=== PATIENT | female | born 1980 | race Caucasian/White ===

== ENCOUNTER 2022-03-12 17:27 | Emergency (ER) | payer OTHER, MEDICAID, SELFPAY ==
[2022-03-12 18:16] VITALS: BP 115/67; PULSE 89; RESP 20; TEMP 37.1; O2SAT 99
--- NOTE | 2022-03-12 20:15 | ED.URI ---
HPI - URI/Sore Throat General Chief Complaint: Upper Respiratory Symptoms Stated Complaint: sore throat Time Seen by Provider: 03/12/22 18:04 Source: patient Mode of arrival: Ambulatory History of Present Illness HPI Narrative: 41-year-old female nonsmoker with noncontributory medical history presents with her son, both of which have chief complaints of fever sore throat and difficulty swallowing. Both her son and her daughter have documented strep pharyngitis. She is not dizzy nor weak or lightheaded. She denies any chest pain or shortness of breath. She is had no nausea, vomiting or diarrhea. Review of Systems Review of Systems Narrative: GENERAL: See HPI HEENT: See HPI RESPIRATORY: Denies dyspnea, cough, wheezing, hemoptysis, sputum. CARDIOVASCULAR: Denies chest pain, palpitations, orthopnea, edema, GASTROINTESTINAL: Denies nausea, vomiting, abdominal pain, diarrhea, constipation, melena. : Denies dysuria, frequency, incontinence, hematuria, urinary retention. MUSCULOSKELETAL: denies weakness, joint pain, or bony pain SKIN: Denies rash, skin lesions, or other NEUROLOGIC: Denies weakness, headache, numbness, change in speech, confusion, seizures, incoordination. PSYCHIATRIC: No concerning psychosocial issues. 12 point review of systems is negative except for those stated above Exam Narrative Exam Narrative: GENERAL: [41] year old patient appears stated age. Well-developed patient, in mild distress. HEAD: Atraumatic. Normocephalic. EYES: Pupils equal round and reactive. Extraocular motions intact. No scleral icterus. No injection or drainage. ENT: Nose without bleeding, purulent drainage. No obvious tonsillar swelling though there is postpharyngeal erythema, no mass or uvular pointing NECK: Trachea midline. Tender anterior nodes CARDIOVASCULAR: Regular rate and rhythm without murmurs, gallops, or rubs. RESPIRATORY: Clear to auscultation. Breath sounds equal bilaterally. No wheezes, rales, or rhonchi. GASTROINTESTINAL: Abdomen soft, non-tender, nondistended. EXTREMITIES: No edema or joint tenderness. BACK: Nontender without deformity or crepitance. No flank tenderness. NEURO: AOx3. SKIN: No rash or erythema of visible areas Initial Vital Signs Initial Vital Signs: Vital Signs Temperature 98.7 F 03/12/22 18:16 Pulse Rate 89 03/12/22 18:16 Respiratory Rate 20 03/12/22 18:16 Blood Pressure 115/67 03/12/22 18:16 Pulse Oximetry 99 03/12/22 18:16 Oxygen Delivery Method 03/12/22 18:16 Course Orders Ordered: ED Orders 03/12/22 20:25 COVID19 -Nasal RAPID/Pre-Proc Stat Discontinued Medications Penicillin G Benzathine (Penicillin G Benzathine 1,200,000 Unit/2 Ml Syringe) 1,200,000 unit IM NOW ONE Stop: 03/12/22 21:25 Last Admin: 03/12/22 21:30 Dose: 1,200,000 unit Documented By: AP Vital Signs Vital signs: Vital Signs - 8 hr 03/12/22 21:41 Pulse Rate 80 Respiratory Rate 18 Blood Pressure 129/80 Pulse Oximetry 98 Oxygen Delivery Method Room Air MDM - URI/Sore Throat Lab Data Labs: Lab Results 03/12/22 Range/Units 20:25 SARS-CoV-2 (PCR) Negative (Negative) Point of Care Testing Rapid Strep A Negative MDM Narrative Medical decision making narrative: Patient's rapid strep was negative but given her rather classic presentation and both children with documented strep we discussed pros and cons of treatment and sure the opinion that she is appropriate for treatment here. Questions answered to her apparent satisfaction Discharge Plan Departure Patient Disposition: Home Clinical Impression: Pharyngitis Instructions: DI for Strep Throat Activity Restrictions/Additional Instructions: *You have been diagnosed with [pharyngitis with negative COVID and negative rapid strep. Your culture is pending but given multiple family members with strep we have elected to treat with antibiotics tonight] *What to do: *Please continue to take your regular medications as directed. *Please follow up with your primary care provider in 2-3 days, call for an appointment. Let them know you were seen in the Emergency Department and that we ask that you be seen in follow up. We will electronically transmit a record of today's note if your PCP is in our system *Return to Emergency Department if you should have any new, worsening or concerning symptoms, such as [fever greater than 101 F, shaking chills, worsening pain, persistent vomiting or other bothersome symptoms] Visit Report Forms: Patient Portal/API
[2022-03-12 21:09] LABS: COVID19 -Nasal RAPID Negative (Negative)
[2022-03-12] MEDS: PENICILLIN G BENZATHINE 1,200,000 UNIT/2 ML SYRINGE 1200000 UNIT IM (21:30)
[2022-03-12 21:41] VITALS: BP 129/80; PULSE 80; RESP 18; O2SAT 98
== END 2022-03-12 21:53 | disposition home or self-care (01) ==
PROVIDERS: Emergency Provider Emergency Medicine
DX: J02.9 Acute pharyngitis, unspecified (principal); Z20.822 Contact with and (suspected) exposure to COVID-19
CPT/HCPCS: 87070; 87635; 87880; 96372; 99283; C9803; J0561

== ENCOUNTER 2022-05-09 15:58 | Emergency (ER) | payer OTHER, MEDICAID, SELFPAY ==
[2022-05-09 16:13] VITALS: BP 110/67; PULSE 77; RESP 20; TEMP 37.7; O2SAT 96; BMI 28.5
[2022-05-09] MEDS: IBUPROFEN 400 MG TABLET 800 MG PO (16:24)
[2022-05-09 17:17] LABS: Influenza A - CEPHEID Flu A POSITIVE (NEGATIVE); Influenza B - CEPHEID Flu B NEGATIVE (NEGATIVE); Respiratory Syncytial Virus Negative (Negative)
[2022-05-09 17:24] LABS: COVID-19 CEPHEID 4-PLEX PCR POSITIVE (Negative)
[2022-05-09 19:24] VITALS: O2SAT 99
[2022-05-09 19:25] VITALS: BP 104/59; PULSE 92; O2SAT 98
[2022-05-09 19:30] VITALS: PULSE 92; O2SAT 96
--- NOTE | 2022-05-09 19:44 | ED.URI ---
HPI - URI/Sore Throat General Chief Complaint: Upper Respiratory Symptoms Stated Complaint: abd pain, back pain, chest pain, fever x 2 days Time Seen by Provider: 05/09/22 19:37 Source: patient Mode of arrival: Ambulatory History of Present Illness HPI Narrative: Patient is a 41-year-old female with history of hypothyroid, presents with abdominal pain body aches decreased appetite presenting today. She is had some shortness of breath cough and generally not feeling well. She is had fever as well. She says her abdomen hurts over. She denies any change in bowel or bladder habits. She denies any dysuria. Related Data Previous Rx's Medication Instructions Recorded acetaminophen 500 mg capsule 1,000 mg PO Q6H PRN fever or pain 05/09/22 #60 caps ibuprofen 600 mg tablet 600 mg PO Q6H PRN fever or pain 05/09/22 #60 tabs Allergies Allergy/AdvReac Type Severity Reaction Status Date / Time hydrocodone Allergy Vomiting Verified 05/09/22 16:19 Review of Systems Review of Systems Narrative: GENERAL: Body aches fever fatigue, see HPI HEENT: Denies sinus pain, ear pain, sore throat, difficulty swallowing, neck pain RESPIRATORY: See HPI CARDIOVASCULAR: Denies chest pain, palpitations, orthopnea, edema GASTROINTESTINAL: See HPI : Denies dysuria, frequency, incontinence, hematuria, urinary retention, flank pain. MUSCULOSKELETAL: Denies weakness, joint pain, or bony pain SKIN: No rash, no erythema, no pruritus NEUROLOGIC: Denies weakness, dizziness, headache, numbness, change in speech, confusion PSYCHIATRIC: No concerning psychosocial issues. 12 point review of systems is negative except for those stated above and HPI Patient History Social History Smoking Status: Current every day smoker Smoking Status: Current every day smoker Substance Use Type: marijuana Exam Initial Vital Signs Initial Vital Signs: Vital Signs Temperature 99.9 F H 05/09/22 16:13 Pulse Rate 77 05/09/22 16:13 Respiratory Rate 20 05/09/22 16:13 Blood Pressure 110/67 05/09/22 16:13 Pulse Oximetry 96 05/09/22 16:13 Oxygen Delivery Method 05/09/22 16:13 GENERAL: Alert pleasant 41-year-old female appears to not feel well but is in no acute distress HEENT: Head atraumatic,EOMI, pupils reactive, face symmetric, moist mucous membranes CARDIOVASCULAR: Regular rate and rhythm without murmurs, rubs or gallops. RESPIRATORY: Breath sounds equal bilaterally, no wheezes rales or rhonchi. Speaks in full sentences bilaterally ABDOMEN: Soft, nontender. Normoactive bowel sounds all 4 quadrants. No guarding or rebound. EXTREMITIES: Normal range of motion, no clubbing or edema. Neurovascularly intact NEUROLOGICAL: Alert and oriented x4. SKIN: Warm, dry, no laceration, no petechiae, no rashes or lesions. Course Orders Ordered: Discontinued Medications Ibuprofen (Ibuprofen 400 Mg Tablet) 800 mg PO NOW ONE Stop: 05/09/22 16:22 Last Admin: 05/09/22 16:24 Dose: 800 mg Documented By: BT Vital Signs Vital signs: Vital Signs - 8 hr 05/09/22 16:13 05/09/22 19:24 05/09/22 19:25 Temperature 99.9 F H Pulse Rate 77 Respiratory Rate 20 Blood Pressure 110/67 104/59 L Pulse Oximetry 96 99 Oxygen Delivery Method Room Air 05/09/22 19:25 05/09/22 19:30 Temperature Pulse Rate 92 H 92 H Respiratory Rate Blood Pressure Pulse Oximetry 98 96 Oxygen Delivery Method MDM - URI/Sore Throat Lab Data Labs: Lab Results 05/09/22 Range/Units 16:21 SARS-CoV-2 (PCR) Positive H (Negative) Influenza A (RT-PCR) Flu a positive H (NEGATIVE) Influenza B (RT-PCR) Flu b negative (NEGATIVE) RSV (PCR) Negative (Negative) MDM Narrative Medical decision making narrative: Patient overall appears well vitals are stable. Positive for influenza a and COVID. Abdomen is very benign. No localization of pain. At this time I do not see need for further workup. She is not significantly shortness of breath. She has no localization of abdominal pain without vomiting or diarrhea. Discharge Plan Departure Patient Disposition: Home Clinical Impression: COVID-19, Influenza A Instructions: DI for Influenza -- Adult, COVID-19 Activity Restrictions/Additional Instructions: *You have been diagnosed with influenza a and COVID *What to do: At this time please stay hydrated and rest. Fever control with Tylenol or Motrin. Drink something like Gatorade or Gatorade like product. Something with sugar and salt, bullion cubes and gummy bears perfectly acceptable. *Continue to take medications as directed Tylenol 1000 mg every 6 hours if needed for [id number] pain or fever Motrin 600 mg every 6 hours if needed for [id number] pain fever *Follow up with your primary care provider in 2-3 days or call [phone] *Return to ER if you should have increasing abdominal pain persistent vomiting unable to tolerate fluids or any new, worsening or concerning symptoms Prescriptions: New ibuprofen 600 mg tablet 600 mg PO Q6H PRN (Reason: fever or pain) Qty: 60 0RF acetaminophen 500 mg capsule 1,000 mg PO Q6H PRN (Reason: fever or pain) Qty: 60 0RF Stand Alone Forms: Work Release Note Visit Report Forms: Patient Portal/API
== END 2022-05-09 19:55 | disposition home or self-care (01) ==
PROVIDERS: Emergency Medicine; Emergency Provider Emergency Medicine
DX: U07.1 COVID-19 (principal); J11.1 Influenza due to unidentified influenza virus with other respiratory manifestations
CPT/HCPCS: 0241U; 99282; 99283

== ENCOUNTER 2022-09-23 15:45 | Emergency (ER) | payer OTHER, MEDICAID, SELFPAY ==
--- NOTE | 2022-09-23 15:48 | ED_ITS ---
HPI - URI/Sore Throat <DIANNA De Paz - Last Filed: 09/23/22 16:11> General Chief Complaint: Upper Respiratory Symptoms Stated Complaint: Strep throat Time Seen by Provider: 09/23/22 15:48 History of Present Illness HPI Narrative: This is a 41-year-old female with history of hypothyroidism who presents to the emergency department with her daughter complaining of a sore throat and states that her whole family has been exposed to strep throat and everybody has a same symptoms. Patient endorses sore throat, denies a cough, endorses nausea without vomiting, and denies any shortness of breath, difficulty swallowing or other concerning airway problem. Endorses having a low-grade fever, no chills, has not had any vomiting. Related Data Previous Rx's Medication Instructions Recorded acetaminophen 500 mg capsule 1,000 mg PO Q6H PRN fever or pain 05/09/22 #60 caps ibuprofen 600 mg tablet 600 mg PO Q6H PRN fever or pain 05/09/22 #60 tabs Allergies Allergy/AdvReac Type Severity Reaction Status Date / Time hydrocodone Allergy Vomiting Verified 05/09/22 16:19 Review of Systems <DIANNA De Paz - Last Filed: 09/23/22 16:11> Review of Systems ROS Unobtainable: All systems reviewed & are unremarkable except as noted in HPI and below Patient History <DIANNA De Paz - Last Filed: 09/23/22 16:11> Social History Smoking Status: Current every day smoker Smoking Status: Current every day smoker Substance Use Type: marijuana Exam <DIANNA De Paz - Last Filed: 09/23/22 16:11> Narrative Exam Narrative: Reviewed vitals signs and nursing notes. General: Pleasant, sitting upright, in no acute distress, well groomed, afebrile HEENT: symmetrical facial expressions, moist mucous membranes, neck is supple, no anterior cervical lymphadenopathy, full range of motion, posterior pharynx is erythematous, uvula is midline, tonsillar adenopathy was tonsillar exudate CV: regular rate and rhythm, warm extremities Respiratory: normal work of breathing, without tachypnea or hypoxia. GI: abdomen soft, nondistended, without CVA tenderness bilaterally. MSK: moves all extremities, no weakness, normal tone, ambulatory without deficit Skin: brisk capillary refill, without rash or wound Neuro: clear speech and normal cognition, A&O x3, GCS 15, no focal motor or sensation deficits Initial Vital Signs Initial Vital Signs: Vital Signs Temperature 98.3 F 09/23/22 15:53 Pulse Rate 83 09/23/22 15:53 Respiratory Rate 16 09/23/22 15:53 Blood Pressure 136/76 09/23/22 15:53 Pulse Oximetry 98 09/23/22 15:53 Oxygen Delivery Method Room Air 09/23/22 15:53 <Louie Min DO - Last Filed: 09/23/22 17:11> Initial Vital Signs Initial Vital Signs: Vital Signs Temperature 98.3 F 09/23/22 15:53 Pulse Rate 83 09/23/22 15:53 Respiratory Rate 16 09/23/22 15:53 Blood Pressure 136/76 09/23/22 15:53 Pulse Oximetry 98 09/23/22 15:53 Oxygen Delivery Method Room Air 09/23/22 15:53 Course <DIANNA De Paz - Last Filed: 09/23/22 16:11> Orders Ordered: ED Orders 09/23/22 15:55 Strep Grp A by PCR Rapid Stat 09/23/22 16:00 Throat Culture Stat Discontinued Medications Dexamethasone (Dexamethasone 10 Mg/Ml Vial) 10 mg PO NOW ONE Stop: 09/23/22 15:49 Last Admin: 09/23/22 16:06 Dose: 10 mg Documented By: CONRAD Ketorolac Tromethamine (Ketorolac 10 Mg Tablet) 10 mg PO NOW ONE Stop: 09/23/22 15:49 Last Admin: 09/23/22 16:05 Dose: 10 mg Documented By: CONRAD Penicillin G Benzathine (Penicillin G Benzathine 1,200,000 Unit/2 Ml Syringe) 1,200,000 unit IM NOW ONE Stop: 09/23/22 15:49 Last Admin: 09/23/22 16:07 Dose: 1,200,000 unit Documented By: CONRAD Vital Signs Vital signs: Vital Signs - 8 hr 09/23/22 15:53 09/23/22 16:24 Temperature 98.3 F Pulse Rate 83 74 Respiratory Rate 16 18 Blood Pressure 136/76 145/69 H Pulse Oximetry 98 99 Oxygen Delivery Method Room Air Room Air <Louie Min DO - Last Filed: 09/23/22 17:11> Orders Ordered: ED Orders 09/23/22 15:55 Strep Grp A by PCR Rapid Stat 09/23/22 16:00 Throat Culture Stat Discontinued Medications Dexamethasone (Dexamethasone 10 Mg/Ml Vial) 10 mg PO NOW ONE Stop: 09/23/22 15:49 Last Admin: 09/23/22 16:06 Dose: 10 mg Documented By: CONRAD Ketorolac Tromethamine (Ketorolac 10 Mg Tablet) 10 mg PO NOW ONE Stop: 09/23/22 15:49 Last Admin: 09/23/22 16:05 Dose: 10 mg Documented By: CONRAD Penicillin G Benzathine (Penicillin G Benzathine 1,200,000 Unit/2 Ml Syringe) 1,200,000 unit IM NOW ONE Stop: 09/23/22 15:49 Last Admin: 09/23/22 16:07 Dose: 1,200,000 unit Documented By: CONRAD Vital Signs Vital signs: Vital Signs - 8 hr 09/23/22 15:53 09/23/22 16:24 Temperature 98.3 F Pulse Rate 83 74 Respiratory Rate 16 18 Blood Pressure 136/76 145/69 H Pulse Oximetry 98 99 Oxygen Delivery Method Room Air Room Air MDM - URI/Sore Throat <DIANNA De Paz - Last Filed: 09/23/22 16:11> MDM Narrative Medical decision making narrative: Chief Complaint: Sore throat Independent historian: Patient Multiple etiologies for patient's symptoms considered including, but not limited to: Bacterial pharyngitis, viral pharyngitis, acute viral process, tonsillitis I have independently reviewed the patient's vital signs and nursing notes as well as prior records if available. My interpretation of lab studies: Throat culture is pending Course of care: On exam patient has bilateral tonsillar adenopathy with exudate, patient and her daughter both have clinical symptoms of strep throat and will be treated for this today. She was given dexamethasone, 1.2 million units of IM penicillin G, she is without stridor, shortness of breath or fever and chills. She understands to follow-up with her primary care provider as needed, no history of penicillin allergy. She will use ibuprofen as needed for her pain. Social considerations that may affect disposition: none Questions are addressed and there is agreement with the plan and for follow-up. I consulted with the ED attending physician Dr. Min as needed for higher l evel of care considerations and they were available for discussion and recommendations regarding plan of care and diagnostic testing. Patient is appropriate for outpatient management. #66: Appropriate Testing for Patients with Pharyngitis [x ] The patient has acute pharyngitis/tonsillitis. The patient was prescribed antibiotics today and a strep test or culture was performed today or in the last 3 days. Discharge Plan Departure Patient Disposition: Home Clinical Impression: Pharyngitis Qualifiers: Pharyngitis/tonsillitis etiology: unspecified etiology Qualified Code(s): J02.9 - Acute pharyngitis, unspecified Instructions: Strep Throat Activity Restrictions/Additional Instructions: *You have been diagnosed with strep throat. Please use ibuprofen and Tylenol as needed for your pain, ibuprofen will offer the most pain control, use throat lozenges as this can help soothe the throat. You should start to get better soon, I am sorry for your symptoms, please return for vomiting, high fever, worsening symptoms, or other concern. *What to do: *Please continue to take your regular medications as directed. [ ] New medication prescriptions sent to your pharmacy: [ ] [ ] New medication written as a paper prescription [x ] No new medications given *Please call and schedule follow up with your primary care provider in 2-3 days, at least for an update. Let them know you were seen in the Emergency Department for the above problem. We will electronically transmit a record of today's note if your PCP or specialist is in our system. *If you do not have a primary care provider please contact [phone] to establish care with one of the [facility] primary care providers. *Return to the Emergency Department for worsening symptoms, inability to keep liquids down, fever greater than 101F, chills, or other concerning symptom. Prescriptions: No Action ibuprofen 600 mg tablet 600 mg PO Q6H PRN (Reason: fever or pain) Qty: 60 0RF acetaminophen 500 mg capsule 1,000 mg PO Q6H PRN (Reason: fever or pain) Qty: 60 0RF Stand Alone Forms: Patient Portal/API <Louie Min, DO - Last Filed: 09/23/22 17:11> Cosign ED Attending Cosignature Attestation: Dr Min Co-Sign Statement: I was available for consultation during this patient's emergency department visit. This chart is signed by myself for administrative purposes only. I did not have direct contact with this patient during this visit. They were seen independently by the APC.
[2022-09-23 15:53] VITALS: BP 136/76; PULSE 83; RESP 16; TEMP 36.8; O2SAT 98; BMI 28.1
[2022-09-23] MEDS: KETOROLAC 10 MG TABLET PO (16:05)
[2022-09-23] MEDS: DEXAMETHASONE 10 MG/ML VIAL PO (16:06)
[2022-09-23] MEDS: PENICILLIN G BENZATHINE 1,200,000 UNIT/2 ML SYRINGE 1200000 UNIT IM (16:07)
[2022-09-23 16:24] VITALS: BP 145/69; PULSE 74; RESP 18; O2SAT 99
[2022-09-23 17:28] VITALS: PULSE 100; RESP 18; O2SAT 98
== END 2022-09-23 17:29 | disposition home or self-care (01) ==
PROVIDERS: Emergency Provider Nurse Practitioner Critical Care Medicine
DX: J02.0 Streptococcal pharyngitis (principal); F17.200 Nicotine dependence, unspecified, uncomplicated
CPT/HCPCS: 36415; 87070; 96372; 99283; J0561; J1100

== ENCOUNTER 2022-11-04 15:00 | Emergency (ER) | payer OTHER, MEDICAID, SELFPAY ==
[2022-11-04 15:04] VITALS: BP 141/83; PULSE 87; RESP 20; TEMP 36.6; O2SAT 98; BMI 27.2
--- NOTE | 2022-11-04 15:14 | DI.RAD.S_ITS ---
PROCEDURE: XR KNEE RT 3V INDICATIONS: Meniscus injury/LCL injury with effusion, avulsion fx? TECHNIQUE: 3 views of the knee were acquired. COMPARISON: None. FINDINGS: Bones: No fractures or dislocations. No suspicious bony lesions. Soft tissues: Moderate joint effusion. No suspicious soft tissue calcifications. IMPRESSION: Moderate joint effusion without evidence avulsion Approved by: Corey Sanon M.D. on 11/04/2022 at 15:24
[2022-11-04] MEDS: LIDOCAINE PATCH 1 EACH ADH..PATCH TOP (15:22)
--- NOTE | 2022-11-04 15:41 | ED.LOWEXIN ---
HPI - Extremity Injury (Lower) <DIANNA De Paz - Last Filed: 11/04/22 16:39> General Chief Complaint: Extremity Injury, Lower Stated Complaint: R knee pain and swelling Time Seen by Provider: 11/04/22 15:07 Source: patient Mode of arrival: Ambulatory History of Present Illness HPI Narrative: This is a 41-year-old female who presents to the emergency department with worsening right knee pain and swelling with concern of instability and ligamental injury. Patient states that she has history of meniscus injury but there was some movement that she made a few days ago which caused sharp pain to the right lateral aspect of her knee and since then she is had swelling of the joint, popping, and states that she is concerned about dislocating her knee because it feels very unstable. She denies fever chills, denies any open wound, denies history of meniscal pain feeling like this, she states that this is new and different but denies radiation of pain or numbness or tingling. She is able to bear weight but states that walking is painful and scary due to instability. She has been using an [place] bandage to help with stability. Related Data Previous Rx's Medication Instructions Recorded acetaminophen 500 mg capsule 1,000 mg PO Q6H PRN fever or pain 05/09/22 #60 caps ibuprofen 600 mg tablet 600 mg PO Q6H PRN fever or pain 05/09/22 #60 tabs diclofenac sodium 1 % topical gel 4 g topical QID PRN pain #100 grams 11/04/22 lidocaine 5 % topical patch 1 patch topical DAILY PRN pain #30 11/04/22 (Lidoderm) ea oxycodone-acetaminophen 5 mg-325 1 tab PO Q8H PRN pain #10 tabs 11/04/22 mg tablet (Percocet) Allergies Allergy/AdvReac Type Severity Reaction Status Date / Time hydrocodone Allergy Vomiting Verified 05/09/22 16:19 Review of Systems <DIANNA De Paz - Last Filed: 11/04/22 16:39> Review of Systems ROS Unobtainable: All systems reviewed & are unremarkable except as noted in HPI and below Patient History <DIANNA De Paz - Last Filed: 11/04/22 16:39> Social History Smoking Status: Current every day smoker Smoking Status: Current every day smoker Substance Use Type: marijuana Exam <DIANNA De Paz - Last Filed: 11/04/22 16:39> Narrative Exam Narrative: Reviewed vitals signs and nursing notes. General: Pleasant, sitting upright, in no acute distress, well groomed, afebrile HEENT: symmetrical facial expressions MSK: Right knee with palpable suprapatellar effusion, no tenderness over patellar tendon, negative Arian's, mildly increased laxity with varus stress test but not with valgus, increased pain with varus testing of the right knee, Skin: brisk capillary refill, without rash or wound Neuro: clear speech and normal cognition, A&O x3, GCS 15, no focal motor or sensation deficits Initial Vital Signs Initial Vital Signs: Vital Signs Temperature 97.9 F 11/04/22 15:04 Pulse Rate 87 11/04/22 15:04 Respiratory Rate 20 11/04/22 15:04 Blood Pressure 141/83 H 11/04/22 15:04 Pulse Oximetry 98 11/04/22 15:04 Oxygen Delivery Method Room Air 11/04/22 15:04 <Joaquin Hill DO - Last Filed: 11/10/22 01:50> Initial Vital Signs Initial Vital Signs: Vital Signs Temperature 97.9 F 11/04/22 15:04 Pulse Rate 87 11/04/22 15:04 Respiratory Rate 20 11/04/22 15:04 Blood Pressure 141/83 H 11/04/22 15:04 Pulse Oximetry 98 11/04/22 15:04 Oxygen Delivery Method Room Air 11/04/22 15:04 Procedures <DIANNA De Paz - Last Filed: 11/04/22 16:39> Orthopedic Splinting/Casting Injury #1: Side: right Lower Extremity Injury Location: knee Lower Extremity Immobilizer: knee immobilizer Other Orthopedic Equipment: cane Post splinting neuro exam: intact and no change Post splinting vascular exam: intact Placed by: Nursing Course <DIANNA De Paz - Last Filed: 11/04/22 16:39> Orders Ordered: Discontinued Medications Ketorolac Tromethamine (Ketorolac 10 Mg Tablet) 10 mg PO NOW ONE Stop: 11/04/22 15:15 Last Admin: 11/04/22 15:19 Dose: Not Given Documented By: MARIA LUZ Lidocaine (Lidocaine Patch 1 Each Adh..Patch) 1 each TOP NOW ONE Stop: 11/04/22 15:15 Last Admin: 11/04/22 15:22 Dose: 1 each Documented By: SB Vital Signs Vital signs: Vital Signs - 8 hr 11/04/22 15:04 Temperature 97.9 F Pulse Rate 87 Respiratory Rate 20 Blood Pressure 141/83 H Pulse Oximetry 98 Oxygen Delivery Method Room Air <Joaquin Hill DO - Last Filed: 11/10/22 01:50> Orders Ordered: Discontinued Medications Ketorolac Tromethamine (Ketorolac 10 Mg Tablet) 10 mg PO NOW ONE Stop: 11/04/22 15:15 Last Admin: 11/04/22 15:19 Dose: Not Given Documented By: MARIA LUZ Lidocaine (Lidocaine Patch 1 Each Adh..Patch) 1 each TOP NOW ONE Stop: 11/04/22 15:15 Last Admin: 11/04/22 15:22 Dose: 1 each Documented By: MARIA LUZ Vital Signs Vital signs: Vital Signs - 8 hr 11/04/22 15:04 Temperature 97.9 F Pulse Rate 87 Respiratory Rate 20 Blood Pressure 141/83 H Pulse Oximetry 98 Oxygen Delivery Method Room Air MDM - Extremity Injury (Lower) <DIANNA De Paz - Last Filed: 11/04/22 16:39> MDM Narrative Medical decision making narrative: Chief Complaint: Right knee pain and swelling Primary historian: Patient Multiple etiologies for patient's complaint considered including, but not limited to: Acute fracture, ligamental injury, knee effusion, muscle strain, avulsion fracture, tibial plateau fracture, quadriceps injury, patellar injury, meniscal injury I have independently reviewed the patient's vital signs and nursing notes as well as prior records if available. My interpretation of imaging: Right knee x-ray shows a moderate knee effusion without evidence of avulsion fracture. Course of care: On exam, patient swollen to the right knee, mildly increased laxity with varus testing not with valgus, tenderness over the LCL, range of motion is mostly intact without ability to fully extend, flexion and extension is intact however in limited only due to pain, Rubens's is positive, can bear weight but sensation of instability, patient was fitted in a knee immobilizer. No evidence of compartment syndrome but likely a knee effusion, range of motion is intact and no tenderness over the MCL, patellar tendon, and Arian's is negative. Patient's fitted in knee immobilizer, encouraged to use ice, ibuprofen and Tylenol, was given pain pills as needed and lidocaine patches with diclofenac gel. Encouraged her to schedule follow up with Orthopedics in 1 week her last and gave contact information to establish primary care with [facility]. She understands her discharge precautions She is given a work note for the next 3 days, encouraged to follow-up with orthopedics for further evaluation including MRI. Presume this is likely LCL injury with meniscus injury. She has a cane for ambulation with her knee immobilizer. She remains neurovascularly intact and able to ambulate successfully with this. Social considerations that may affect disposition: none Questions are addressed and there is agreement with the plan and for follow-up. I consulted with the ED attending physician Dr. Hill as needed for higher level of care considerations and they were available for discussion and recommendations regarding plan of care and diagnostic testing. Patient is appropriate for outpatient management. Discharge Plan Departure Patient Disposition: Home Clinical Impression: Effusion of knee joint right Instructions: Knee Sprain, DI for Meniscal Tear, DI for Knee Effusion, How to Use a Knee Immobilizer Activity Restrictions/Additional Instructions: *You have been diagnosed with a knee effusion with concern for meniscus and for LCL injury. Please schedule follow-up with [facility] for recheck in 1 week or less, they will refer you to advanced imaging or physical therapy as indicated. Please ice this, take Tylenol and ibuprofen together every 6 hours with food and water. Apply something topical like Voltaren gel or lidocaine patches for pain. Please call the number listed below to establish care with one of the local primary care providers, I worn you that the wait will be a few months but keep that appointment. Thank you for waiting for the ultrasound, it does show a large knee effusion however there is no avulsion fracture or evidence of a fracture. No significant evidence of meniscus injury but I want you to follow-up with [facility], please call tomorrow and schedule an appointment. *What to do: *Please continue to take your regular medications as directed. [x ] New medication prescriptions sent to your pharmacy: [ [facility]] [ ] New medication written as a paper prescription [ ] No new medications given *Please call and schedule follow up with your primary care provider in 2-3 days, at least for an update. Let them know you were seen in the Emergency Department for the above problem. We will electronically transmit a record of today's note if your PCP or specialist is in our system. *If you do not have a primary care provider please contact [phone] to establish care with one of the [facility] primary care providers. *Return to the Emergency Department for worsening symptoms, inability to keep liquids down, fever greater than 101F, chills, or other concerning symptom. Prescriptions: New oxycodone-acetaminophen [Percocet] 5-325 mg tablet 1 tab PO Q8H PRN (Reason: pain) Qty: 10 0RF lidocaine [Lidoderm] 5 % adhesive patch,medicated 1 patch topical DAILY PRN (Reason: pain) Qty: 30 0RF Rx Instructions: leave on most painful area for up to 12 hrs diclofenac sodium 1 % gel 4 g topical QID PRN (Reason: pain) Qty: 100 2RF Rx Instructions: apply to single joint up to 4 times a day as needed for pain No Action ibuprofen 600 mg tablet 600 mg PO Q6H PRN (Reason: fever or pain) Qty: 60 0RF acetaminophen 500 mg capsule 1,000 mg PO Q6H PRN (Reason: fever or pain) Qty: 60 0RF Referrals: [facility] [Provider Group] Stand Alone Forms: Patient Portal/API, Work Release Note <Joaquin Hill DO - Last Filed: 11/10/22 01:50> [facility] ED Attending Britany Attestation: I was immediately available in the department for consultation. Documentation has been reviewed. I agree with assessment and plan.
[2022-11-04 17:04] VITALS: BP 149/83; PULSE 79; O2SAT 100
== END 2022-11-04 17:00 | disposition home or self-care (01) ==
PROVIDERS: Emergency Provider Nurse Practitioner Critical Care Medicine
DX: M25.461 Effusion, right knee (principal)
CPT/HCPCS: 73562; 99283

== ENCOUNTER → 2023-01-04 16:38 | Outpatient (CLI) | payer OTHER, SELFPAY ==
--- NOTE | 2023-01-04 16:40 | DI.MRI.S_ITS ---
PROCEDURE: MR KNEE RT WO CON INDICATIONS: LOCKED KNEE/EVALUATE LOOSE BODY OR MENISCUS TEAR TECHNIQUE: Noncontrast sagittal PD fast spin echo and T2 fast spin echo with fat saturation, sagittal 3-D FLASH with fat saturation; coronal T1 spin echo and PD fast spin echo with fat saturation, and axial PD fast spin echo with fat saturation through the knee. COMPARISON: [facility], CR, XR KNEE RT 3V, 11/04/2022, 15:21. FINDINGS: Image quality: Excellent. Anterior Cruciate Ligament: Intact. Posterior Cruciate Ligament: Intact. Medial Collateral Ligament: Intact. Lateral Collateral Ligament: Intact. Medial Meniscus: Subtle contour irregularity and intermediate intrasubstance signal at the body of the lateral meniscus is suspicious for a peripheral horizontal oblique tear extending to the outer third of the tibial articular surface. Lateral Meniscus: Suspected focal vertical longitudinal tearing of the lateral meniscus at the anterior root attachment, best seen on thin slice sagittal images with an adjacent parameniscal cyst measuring 7 x 5 x 5 mm at the anterior intercondylar notch. Medial and Lateral Tendons: The semimembranosus tendon insertions and meniscocapsular junction appear intact. Visualized portions of the pes anserinus tendons appear normal. No abnormal bursal fluid. The long and short heads of the biceps femoris tendon appear intact. The popliteus tendon appears intact. No signs of posterolateral corner injury. Iliotibial band appears normal. Anterior Structures: The quadriceps and patellar tendons appear intact. No patellar subluxation. No femoral trochlear dysplasia or ventral trochlear prominence. No edema in the infrapatellar fat pad. Bones: No acute trabecular bone injury or fracture. Medial Femorotibial Cartilage: Mild generalized partial-thickness cartilage thinning in the weight-bearing portion of the medial femorotibial compartment. Lateral Femorotibial Cartilage: High-grade partial-thickness cartilage irregularity is seen at the posterior weight-bearing portion of the lateral femoral condyle. Patellofemoral Cartilage: Shallow cartilage fissuring is seen at the medial and lateral patellar facets and there is partial-thickness cartilage irregularity at the median ridge of the patella and likely the trochlear groove. Soft Tissues: A cyst is seen in the anterior intercondylar notch measuring 7 x 5 x 5 mm. There is a small joint effusion. Trace medial popliteal cyst. No intra-articular loose body is seen. The musculature surrounding the knee is normal in bulk. IMPRESSION: 1. Small focal vertical longitudinal tear of the lateral meniscus at the anterior root attachment. An adjacent 7 mm cyst at the anterior intercondylar notch is most likely a parameniscal cyst versus pericruciate cyst, ganglion cyst, or loculated joint fluid. 2. Peripheral horizontal oblique tear of the body of the medial meniscus extending to the outer third of the tibial articular surface. 3. 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 There is grade 2 chondromalacia in the medial and anterior compartments. 4. No acute trabecular bone injury. Cruciate and collateral ligaments are intact. 5. Small joint effusion. No intra-articular loose body identified. Approved by: Dennis Davis M.D. on 01/07/2023 at 8:53
== END ==
PROVIDERS: Referring Provider Physician Assistant Medical; Visit Provider Physician Assistant Medical
DX: S83.281A Other tear of lateral meniscus, current injury, right knee, initial encounter (principal); S83.241A Other tear of medial meniscus, current injury, right knee, initial encounter; M23.91 Unspecified internal derangement of right knee; M94.261 Chondromalacia, right knee; M25.461 Effusion, right knee
CPT/HCPCS: 73721

== ENCOUNTER → 2025-02-27 07:43 | Outpatient (CLI) | payer OTHER, SELFPAY ==
--- NOTE | 2025-02-27 07:44 | DI.RAD.S_ITS ---
PROCEDURE: XR CHEST 2V INDICATIONS: Shortness of breath TECHNIQUE: 2 views of the chest were acquired. COMPARISON: None. FINDINGS: Surgical changes and devices: None. Lungs and pleura: Eventration of the left hemidiaphragm with associated compressive atelectasis. Lungs are otherwise clear. No pneumothorax. Minimal blunting of the left costophrenic angle likely related to pleural thickening or scarring. Otherwise, no substantial pleural effusion identified. Mediastinum: Mediastinal contours are normal. Heart size is normal. Bones and chest wall: No suspicious bony abnormalities. Soft tissues appear unremarkable. IMPRESSION: No acute cardiopulmonary abnormality is seen. No dense consolidation. Dictated by: Javy Kat M.D. on 02/27/2025 at 8:01 Approved by: Javy Kat M.D. on 02/27/2025 at 8:03
== END ==
PROVIDERS: Referring Provider Registered Nurse; Visit Provider Registered Nurse
DX: R06.02 Shortness of breath (principal)
CPT/HCPCS: 71046

== ENCOUNTER 2025-03-08 10:54 | Emergency (ER) | payer OTHER, SELFPAY ==
[2025-03-08 11:08] VITALS: BP 119/66; PULSE 86; RESP 18; TEMP 37.6; O2SAT 97; BMI 33.0
--- NOTE | 2025-03-08 11:26 | DI.RAD.S_ITS ---
PROCEDURE: XR CHEST 2V INDICATIONS: concern PNA; cough, cp, sob multiple weeks TECHNIQUE: 2 views of the chest were acquired. COMPARISON: [facility], CR, XR CHEST 2V, 02/27/2025, 7:38. FINDINGS: Surgical changes and devices: None. Lungs and pleura: Elevation of the left hemidiaphragm appears unchanged. Left basilar horizontal opacity likely related to atelectasis. No pleural effusions or pneumothorax. Mediastinum: Mediastinal contours are normal. Heart size is normal. Bones and chest wall: No suspicious bony abnormalities. Soft tissues appear unremarkable. IMPRESSION: Stable elevation of the left hemidiaphragm with left basilar opacity that is favored to represent atelectasis rather than pneumonia or aspiration. Approved by: Dennis Davis M.D. on 03/08/2025 at 12:12
[2025-03-08] MEDS: IBUPROFEN 400 MG TABLET PO (11:37)
[2025-03-08] MEDS: ACETAMINOPHEN 325 MG TABLET 975 MG PO (11:38)
--- NOTE | 2025-03-08 11:45 | ED.URI ---
HPI - URI/Sore Throat <Yaima Van PA-C - Last Filed: 03/08/25 14:25> General Chief Complaint: Upper Respiratory Symptoms Stated Complaint: Both ear pain, congestion x 3 weeks Time Seen by Provider: 03/08/25 11:22 Source: patient Mode of arrival: Ambulatory History of Present Illness HPI Narrative: Ms. Tamayo is a pleasant 44-year-old female with a past medical history of hypothyroidism who presents to the emergency department for bilateral ear pressure, sinus congestion, postnasal drip, coughing x3 weeks. Patient states her symptoms started as a cough and have persisted and she is having a lot of congestion and ear pain as well. She went to the walk-in clinic on 02/27/2025 and had a negative chest x-ray. She says despite taking Sudafed, Mucinex, warm tea with honey, various [id number] medications she continues to have severe congestion and coughing that is keeping her up at night. The only thing that is helping is occasionally warm water with honey. She does have a history of pneumonia and is concerned that she needs antibiotics. Denies fevers, chills, severe sore throat. She is here with her daughter who has been having similar symptoms for 2 days. She denies any medication allergies. States that overall she actually feels slightly better but the cough is much worse. Related Data Home Medications ?Medication ?Instructions ?Recorded ?Confirmed albuterol sulfate 90 mcg/actuation inhalation 06/28/23 02/27/25 aerosol inhaler levothyroxine 137 mcg tablet 137 mcg PO DAILY 06/28/23 02/27/25 Previous Rx's ?Medication ?Instructions ?Recorded acetaminophen 500 mg capsule 1,000 mg (2 x 500 mg) PO Q6H PRN 05/09/22 fever or pain #60 caps ibuprofen 600 mg tablet 600 mg PO Q6H PRN fever or pain 05/09/22 #60 tabs diclofenac sodium 1 % topical gel 4 g topical QID PRN pain #100 grams 11/04/22 lidocaine 5 % topical patch 1 patch topical DAILY PRN pain #30 11/04/22 (Lidoderm) ea amoxicillin 875 mg-potassium 1 tab PO Q12H 7 days #14 tabs 03/08/25 clavulanate 125 mg tablet benzonatate 200 mg capsule 200 mg PO BID-TID PRN cough #30 03/08/25 caps doxycycline hyclate 100 mg capsule 100 mg PO BID 5 days #10 caps 03/08/25 fluconazole 150 mg tablet 150 mg PO Q3D 2 doses #2 tabs 03/08/25 Allergies Allergy/AdvReac Type Severity Reaction Status Date / Time hydrocodone Allergy Vomiting Verified 03/08/25 11:08 Review of Systems <Yaima Van PA-C - Last Filed: 03/08/25 14:25> Review of Systems ROS Unobtainable: All systems reviewed & are unremarkable except as noted in HPI and below Patient History <Yaima Van PA-C - Last Filed: 03/08/25 14:25> Social History Smoking Status: Former smoker Smoking Status: Former smoker Exam <Yaima Van PA-C - Last Filed: 03/08/25 14:25> Narrative Exam Narrative: GENERAL: 44 year old patient appears stated age. Well-developed patient, in no acute distress. HEAD: Atraumatic. Normocephalic. EYES: No scleral icterus. No injection or drainage. ENT: Clear ear canals bilaterally, there is clear fluid behind the TMs which are white and scarred. No erythema or bulging. Nose without bleeding, purulent drainage. Throat with mild posterior oropharyngeal erythema, no tonsillar hypertrophy, uvula is midline, airway is patent. NECK: Trachea midline. Cervical ROM intact. CARDIOVASCULAR: Regular rate and rhythm. RESPIRATORY: ?Nonlabored respirations. ?Speaking in clear, full sentences. Patient has coarse expiratory breath sounds throughout, no wheezing. GASTROINTESTINAL: Abdomen soft, non-tender, nondistended. EXTREMITIES: No LE edema. NEURO: AOx3. ?Clear speech. ?Moves all 4 extremities appropriately. SKIN: No rash or erythema of visible areas Initial Vital Signs Initial Vital Signs: Vital Signs Temperature 99.7 F H 03/08/25 11:08 Pulse Rate 86 03/08/25 11:08 Respiratory Rate 18 03/08/25 11:08 Blood Pressure 119/66 03/08/25 11:08 Pulse Oximetry 97 03/08/25 11:08 Oxygen Delivery Method Room Air 03/08/25 11:08 <Carolina Briggs DO - Last Filed: 03/09/25 07:08> Initial Vital Signs Initial Vital Signs: Vital Signs Temperature 99.7 F H 03/08/25 11:08 Pulse Rate 86 03/08/25 11:08 Respiratory Rate 18 03/08/25 11:08 Blood Pressure 119/66 03/08/25 11:08 Pulse Oximetry 97 03/08/25 11:08 Oxygen Delivery Method Room Air 03/08/25 11:08 Course <Yaima Van PA-C - Last Filed: 03/08/25 14:25> Orders Ordered: Discontinued Medications Acetaminophen (Acetaminophen 325 Mg Tablet) 975 mg PO NOW ONE Stop: 03/08/25 11:28 Last Admin: 03/08/25 11:38 Dose: 975 mg Documented By: ARMANDO Ibuprofen (Ibuprofen 400 Mg Tablet) 400 mg PO NOW ONE Stop: 03/08/25 11:28 Last Admin: 03/08/25 11:37 Dose: 400 mg Documented By: ARMANDO Vital Signs Vital signs: Vital Signs - 8 hr 03/08/25 11:08 03/08/25 12:46 03/08/25 12:46 Temperature 99.7 F H 98.5 F 98.5 F Pulse Rate 86 Respiratory Rate 18 Blood Pressure 119/66 Pulse Oximetry 97 Oxygen Delivery Method Room Air 03/08/25 12:46 Temperature 98.5 F Pulse Rate 77 Respiratory Rate 16 Blood Pressure 123/72 Pulse Oximetry 96 Oxygen Delivery Method Room Air <Carolina Briggs DO - Last Filed: 03/09/25 07:08> Orders Ordered: Discontinued Medications Acetaminophen (Acetaminophen 325 Mg Tablet) 975 mg PO NOW ONE Stop: 03/08/25 11:28 Last Admin: 03/08/25 11:38 Dose: 975 mg Documented By: ARMANDO Ibuprofen (Ibuprofen 400 Mg Tablet) 400 mg PO NOW ONE Stop: 03/08/25 11:28 Last Admin: 03/08/25 11:37 Dose: 400 mg Documented By: ARMANDO Vital Signs Vital signs: Vital Signs - 8 hr 03/08/25 11:08 03/08/25 12:46 03/08/25 12:46 Temperature 99.7 F H 98.5 F 98.5 F Pulse Rate 86 Respiratory Rate 18 Blood Pressure 119/66 Pulse Oximetry 97 Oxygen Delivery Method Room Air 03/08/25 12:46 Temperature 98.5 F Pulse Rate 77 Respiratory Rate 16 Blood Pressure 123/72 Pulse Oximetry 96 Oxygen Delivery Method Room Air [facility] - URI/Sore Throat <Yaima Van PA-C - Last Filed: 03/08/25 14:25> Medical Records Attestation: I reviewed the patient's medical records. Lab Data Labs: Lab Results 03/08/25 Range/Units 11:15 SARS-CoV-2 (PCR) Negative (Negative) Influenza A (RT-PCR) Flu a negative (NEGATIVE) Influenza B (RT-PCR) Flu b negative (NEGATIVE) RSV (PCR) Negative (Negative) Imaging Data Chest x-ray: Radiologist's Impression: PROCEDURE: XR CHEST 2V INDICATIONS: concern PNA; cough, cp, sob multiple weeks TECHNIQUE: 2 views of the chest were acquired. COMPARISON: [facility], , XR CHEST 2V, 02/27/2025, 7:38. FINDINGS: Surgical changes and devices: None. Lungs and pleura: Elevation of the left hemidiaphragm appears unchanged. Left basilar horizontal opacity likely related to atelectasis. No pleural effusions or pneumothorax. Mediastinum: Mediastinal contours are normal. Heart size is normal. Bones and chest wall: No suspicious bony abnormalities. Soft tissues appear unremarkable. IMPRESSION: Stable elevation of the left hemidiaphragm with left basilar opacity that is favored to represent atelectasis rather than pneumonia or aspiration. Approved by: Dennis Davis M.D. on 03/08/2025 at 12:12 [facility] Narrative Medical decision making narrative: 44-year-old female with a past medical history of hypothyroidism who presents to the emergency department for bilateral ear pressure, sinus congestion, postnasal drip, coughing x3 weeks. Differential diagnosis includes but isn't limited to bacterial sinusitis, pneumonia, bronchitis, pleural effusion, etc. On exam patient is in no acute distress, nontoxic appearing, vital signs appropriate except for mildly elevated temperature 99.7?. She is not tachycardic or hypoxic. No lower extremity edema. She has had persistent upper respiratory infection type symptoms for 3 weeks, at this time patient clinically warrants antibiotics for bacterial sinusitis however we will also obtain chest x-ray she does have some coarse expiratory breath sounds. We will treat with ibuprofen Tylenol at this time. She is also interested in prescription for benzonatate for cough. Chest x-ray reveals elevation of left hemidiaphragm with left basilar opacity that is favored to represent atelectasis however given patient's history physical exam, duration of symptoms, we will treat as community-acquired pneumonia in addition to sinusitis with Augmentin and doxycycline. Discussed rest, hydration, warm tea with honey, benzonatate if needed for cough, follow up with PCP. Discussed strict ER return precautions. Patient verbalized understanding of all information and is happy with the plan, all vital signs are within normal limits, she is stable for discharge home. <Carolina Briggs, - Last Filed: 03/09/25 07:08> Lab Data Labs: Lab Results 03/08/25 Range/Units 11:15 SARS-CoV-2 (PCR) Negative (Negative) Influenza A (RT-PCR) Flu a negative (NEGATIVE) Influenza B (RT-PCR) Flu b negative (NEGATIVE) RSV (PCR) Negative (Negative) Discharge Plan Departure Patient Disposition: Home Clinical Impression: Community acquired pneumonia Qualifiers: Laterality: left Lung location: lower lobe of lung Qualified Code(s): J18.9 - Pneumonia, unspecified organism Sinusitis Qualifiers: Sinusitis location: unspecified location Chronicity: acute Recurrence: non-recurrent Qualified Code(s): J01.90 - Acute sinusitis, unspecified Instructions: DI for Atypical Pneumonia Activity Restrictions/Additional Instructions: Dear Ms. Tamayo, Thank you for coming to the emergency department. Today you were being treated for a sinus infection and a lung infection. You have been prescribed 2 antibiotics. Please complete the full course of both antibiotics. Please have food in your stomach before you take these medications. However avoid taking the antibiotics with dairy. Stay upright for 30 minutes to 1 hour after taking the antibiotics. Please be aware that doxycycline does make you more prone to sunburn so it is important to keep the skin covered. Antibiotics can cause stomach upset diarrhea, so increase probiotics in your diet while taking these. You have also been prescribed cough medicine to use as needed. Please rest, hydrate, use warm tea with honey to help soothe the throat, follow up with the primary care doctor, return to the emergency department if develop any new or worsening symptoms. As requested, I did send a prescription for Diflucan which is the treatment for vaginal yeast infection. Please take this after you have completed your antibiotics if you are experiencing symptoms of a yeast infection. Please follow up with your primary care doctor within the next 2-3 days for ER follow-up. (If you do not have a PCP you can call [phone]. ?to schedule an appointment with an [facility] Primary Care Provider) IF YOU DEVELOP ANY NEW OR WORSENING SYMPTOMS, RETURN TO THE ER! Please read the attached instructions, they highlight more specific treatments and interventions for you at home. Thank you for letting me participate in your care, Yaima Van PA-C Prescriptions: New amoxicillin-pot clavulanate 875-125 mg tablet 1 tab PO Q12H 7 Days Qty: 14 0RF doxycycline hyclate 100 mg capsule 100 mg PO BID 5 Days Qty: 10 0RF benzonatate 200 mg capsule 200 mg PO BID-TID PRN (Reason: cough) Qty: 30 0RF Rx Instructions: keep away from children. fluconazole 150 mg tablet 150 mg PO Q3D Qty: 2 0RF Rx Instructions: may repeat second dose 72 hrs after first dose if symptoms persist No Action levothyroxine 137 mcg tablet 137 mcg PO DAILY albuterol sulfate 90 mcg/actuation HFA aerosol inhaler inhalation lidocaine [Lidoderm] 5 % adhesive patch,medicated 1 patch topical DAILY PRN (Reason: pain) Qty: 30 0RF Rx Instructions: leave on most painful area for up to 12 hrs diclofenac sodium 1 % gel 4 g topical QID PRN (Reason: pain) Qty: 100 2RF Rx Instructions: apply to single joint up to 4 times a day as needed for pain ibuprofen 600 mg tablet 600 mg PO Q6H PRN (Reason: fever or pain) Qty: 60 0RF acetaminophen 500 mg capsule 1,000 mg PO Q6H PRN (Reason: fever or pain) Qty: 60 0RF Stand Alone Forms: Patient Portal/API ED Sign-out <Carolina Briggs DO - Last Filed: 03/09/25 07:08> Cosign ED Attending Cosignature Attestation: I was available for consultation.
[2025-03-08 12:25] LABS: Influenza A - CEPHEID Flu A NEGATIVE (NEGATIVE); Influenza B - CEPHEID Flu B NEGATIVE (NEGATIVE)
[2025-03-08 12:27] LABS: COVID-19 CEPHEID 4-PLEX PCR Negative (Negative)
[2025-03-08 12:46] VITALS: BP 123/72; PULSE 77; RESP 16; TEMP 36.9; O2SAT 96
== END 2025-03-08 12:45 | disposition home or self-care (01) ==
PROVIDERS: Emergency Medicine; Emergency Provider Physician Assistant
DX: J18.9 Pneumonia, unspecified organism (principal); J01.90 Acute sinusitis, unspecified; Z87.01 Personal history of pneumonia (recurrent); Z87.891 Personal history of nicotine dependence
CPT/HCPCS: 71046; 87637; 99283

== ENCOUNTER → 2025-03-25 13:27 | Outpatient (CLI) | payer OTHER, SELFPAY | PROVIDERS: Visit Provider Chiropractor | DX: J02.9 Acute pharyngitis, unspecified (principal) | CPT/HCPCS: 87070 ==